=== PATIENT | female | born 1940 | race African-American/Black ===

== ENCOUNTER 2021-12-03 18:40 | Inpatient (IN) | payer OTHER ==
[~2021-12-03] VITALS: Ht 172.7 cm; Wt 77.1 kg
[2021-12-03] MEDS ORDERED: CEFTRIAXONE 1 G PREMIX 50 ML IV ONE (19:15)
[2021-12-03] MEDS ORDERED: SODIUM CHLORIDE 0.9% 1000ML BAG (SEPSIS BOLUS) IV ONE (19:15)
[2021-12-03] MEDS ORDERED: VANCOMYCIN 1G PREMIX 200 ML IV SCH (19:15)
[2021-12-03 19:25] LABS: BASOPHILS % 0.3 % (0.0-2.0); EOSINOPHILS % 0.1 % (0.0-5.0); HEMATOCRIT. 39.2 % (36.0-48.0); LYMPHOCYTES % 35.8 % (20.0-50.0); MEAN CORPUSCULAR HEMOGLOBIN 31.7 pg (28.0-32.0); MEAN CORPUSCULAR VOLUME 95.4 fL (81.0-99.0); MEAN PLATELET VOLUME 10.3 fl (7.4-10.4); MONOCYTES % 3.9 % (2.0-8.0); NEUTROPHILS % 59.9 % (40.0-76.0); PLATELET 162 x1000/uL (130-400); RED BLOOD CELL COUNT 4.11 mill/uL (4.2-5.4); RED CELL DISTRIBUTION WIDTH 14.9 % (11.6-14.6)
[2021-12-03 19:33] LABS: CHLORIDE 106 mEq/L (98-107)
[2021-12-03] MEDS ORDERED: NOREPINEPHRINE 8MG/250ML PMX 250 ML IV ONE (19:45)
[2021-12-03] MEDS ORDERED: KETOROLAC 15MG/ML VIAL IV ONE (21:00)
[2021-12-03 23:24] LABS: CLARITY URINE CLEAR (CLEAR); COLOR URINE YELLOW (YELLOW); KETONES URINE TRACE (NEGATIVE); LEUKOCYTE ESTERASE URINE NEGATIVE (NEGATIVE); NITRITE URINE NEGATIVE (NEGATIVE); OCCULT BLOOD URINE 1+ (NEGATIVE); PROTEIN URINE 1+ (NEGATIVE); SPECIFIC GRAVITY URINE 1.015 (1.005-1.030)
[2021-12-04] MEDS ORDERED: NOREPINEPHRINE 8MG/250ML PMX 250 ML IV ONE (02:03)
[2021-12-04] MEDS ORDERED: ONDANSETRON HCL 4MG/2ML INJ IV PRN (11:45)
[2021-12-04] MEDS ORDERED: ACETAMINOPHEN 325MG TABLET PO PRN (11:45)
[2021-12-04] MEDS ORDERED: DEXTROSE 50% WATER 50ML SYRINGE IV PRN (11:45)
[2021-12-04] MEDS: BLOOD SUGAR DIAGNOSTIC STRIP TEST SCH ×3 (12:50→20:43)
[2021-12-04] MEDS: ENOXAPARIN 40MG/0.4ML SYR SUBCUT SCH (14:36)
[2021-12-04] MEDS ORDERED: HALOPERIDOL LACTATE 5MG/ML VIAL IM NR (15:47)
[2021-12-04 15:53] LABS: CREATINE KINASE 60 IU/L (26-192); CREATINE KINASE MB FRACTION < 1.0 ng/mL (0.5-3.6)
[2021-12-04] MEDS: QUETIAPINE FUMARATE 50MG TABLET PO SCH (16:35)
[2021-12-04] MEDS: INSULIN LISPRO 100 UNITS/ML SUBCUT SCH ×2 (16:53→20:43)
[2021-12-04] MEDS ORDERED: CEFTRIAXONE 2 G PREMIX 50 ML IV SCH (19:00)
[2021-12-04 19:10] VITALS: BP 129/68
[2021-12-04 20:00] VITALS: BP 129/68
[2021-12-04] MEDS: VANCOMYCIN 1GM PMX (XELLIA) 200 ML IV SCH (20:55)
[2021-12-04] MEDS: CEFTRIAXONE 2 G in DEXTROSE 5% WATER 50 ML IV SCH (20:56)
[2021-12-04] MEDS: ASPIRIN 300MG SUPP PR SCH (21:56)
[2021-12-04] MEDS ORDERED: PANT40TA51 PO (22:37)
[2021-12-04] MEDS ORDERED: QUET200T30 PO (22:37)
[2021-12-04] MEDS ORDERED: AMLO10TA80 PO (22:37)
[2021-12-04] MEDS ORDERED: TOPUD PO (22:37)
[2021-12-04] MEDS ORDERED: ASPI-1497 PO (22:37)
[2021-12-04] MEDS ORDERED: ATOR10TA69 PO (22:37)
[2021-12-04] MEDS ORDERED: CALC-988 PO (22:37)
[2021-12-04] MEDS ORDERED: MEMA10TA55 PO (22:37)
[2021-12-04] MEDS ORDERED: MELA5TAB19 PO (22:37)
[2021-12-04] MEDS ORDERED: LOPE2CAP PO (22:37)
[2021-12-04] MEDS ORDERED: MELA10TA PO (22:37)
[2021-12-04 23:30] LABS: CREATINE KINASE 89 IU/L (26-192); CREATINE KINASE MB FRACTION < 1.0 ng/mL (0.5-3.6)
[2021-12-04 23:41] VITALS: BP 110/50
[2021-12-05 04:00] VITALS: BP 131/62
[2021-12-05] MEDS: INSULIN LISPRO 100 UNITS/ML SUBCUT SCH ×4 (06:10→20:57)
[2021-12-05] MEDS: BLOOD SUGAR DIAGNOSTIC STRIP TEST SCH ×4 (06:10→20:57)
[2021-12-05 07:40] LABS: BASOPHILS % 0.3 % (0.0-2.0); EOSINOPHILS % 1.8 % (0.0-5.0); HEMATOCRIT. 31.3 % (36.0-48.0); HEMOGLOBIN. 10.6 g/dL (12.0-16.0); LYMPHOCYTES % 19.6 % (20.0-50.0); MEAN CORPUSCULAR VOLUME 94.1 fL (81.0-99.0); MEAN PLATELET VOLUME 10.2 fl (7.4-10.4); MONOCYTES % 10.9 % (2.0-8.0); NEUTROPHILS % 67.4 % (40.0-76.0); PLATELET 137 x1000/uL (130-400); RED BLOOD CELL COUNT 3.33 mill/uL (4.2-5.4); RED CELL DISTRIBUTION WIDTH 14.2 % (11.6-14.6)
[2021-12-05 08:00] VITALS: BP 110/67
[2021-12-05] MEDS: QUETIAPINE FUMARATE 50MG TABLET PO SCH (08:22)
[2021-12-05] MEDS: ENOXAPARIN 40MG/0.4ML SYR SUBCUT SCH (08:22)
[2021-12-05 09:09] LABS: CHLORIDE 110 mEq/L (98-107)
[2021-12-05 12:00] VITALS: BP 118/61
[2021-12-05] MEDS: VANCOMYCIN 1GM PMX (XELLIA) 200 ML IV SCH (12:59)
[2021-12-05] MEDS: ASPIRIN 300MG SUPP PR SCH (13:08)
[2021-12-05] MEDS ORDERED: SODIUM CHLORIDE 0.9% 1,000 ML IV SCH (14:30)
[2021-12-05] MEDS ORDERED: HALOPERIDOL LACTATE 5MG/ML VIAL IM PRN (14:30)
[2021-12-05 16:00] VITALS: BP 102/74
[2021-12-05] MEDS: CEFTRIAXONE 2 G in DEXTROSE 5% WATER 50 ML IV SCH (19:37)
[2021-12-05 20:19] VITALS: BP 131/62
== END 2021-12-05 21:42 | disposition short-term general hospital (02) | DRG 871 ==
LOC: ER 18:40 → MICUSO 23:30 → ENRESERV 12-04 11:35 → EDBEDREQSVC 12-04 12:17 → ENRESERV 12-04 15:04 → EDBEDREQ 12-04 16:43 → 8WST 12-04 20:42
PROVIDERS: ADMIT Internal Medicine; ATTEND Internal Medicine
DX: A41.9 Sepsis, unspecified organism (principal); G93.41 Metabolic encephalopathy; R65.21 Severe sepsis with septic shock; E87.2 Acidosis; B99.8 Other infectious disease; Z20.822 Contact with and (suspected) exposure to COVID-19; E78.5 Hyperlipidemia, unspecified; I10 Essential (primary) hypertension; I95.9 Hypotension, unspecified; E78.00 Pure hypercholesterolemia, unspecified; F03.90 Unspecified dementia, unspecified severity, without behavioral disturbance, psychotic disturbance, mood disturbance, and anxiety; E11.65 Type 2 diabetes mellitus with hyperglycemia; F41.9 Anxiety disorder, unspecified
CPT/HCPCS: 36415; 71045; 80048; 80053; 81003; 82550; 82553; 82962; 83036; 83605; 83880; 84145; 84484; 85025; 87426; 93005; 99291; J0696; J1630; J1650; J1815; J3370; J3490; J7030; J7060; A4315

== ENCOUNTER 2022-10-08 22:27 | Emergency (ER) | payer OTHER ==
[~2022-10-08] VITALS: Ht 170.2 cm; Wt 73.0 kg
[~2022-10-08 22:27] MED LIST: AMLO10TA80 PO; ASPI-1497 PO; ATOR10TA69 PO; CALC-988 PO; LOPE2CAP PO; MELA5TAB19 PO; MELATONIN10 MG PO; PANT40TA51 PO; QUET200T30 PO; TOPUD PO
[2022-10-08 22:36] VITALS: O2SAT 96
[2022-10-08] MEDS ORDERED: CEFTRIAXONE 1GM PREMIX 50 ML IV ONE (23:00)
[2022-10-08] MEDS ORDERED: SODIUM CHLORIDE 0.9% 1000ML BAG (SEPSIS BOLUS) IV ONE (23:00)
[2022-10-08 23:30] LABS: HEMATOCRIT. 36.9 % (36.0-48.0); HEMOGLOBIN. 12.3 g/dL (12.0-16.0); MEAN CORPUSCULAR VOLUME 96.1 fL (81.0-99.0); PLATELET 162 x1000/uL (130-400); RED BLOOD CELL COUNT 3.84 mill/uL (4.2-5.4)
[2022-10-08 23:38] LABS: CLARITY URINE CLEAR (CLEAR); COLOR URINE YELLOW (YELLOW); KETONES URINE TRACE (NEGATIVE); LEUKOCYTE ESTERASE URINE NEGATIVE (NEGATIVE); NITRITE URINE NEGATIVE (NEGATIVE); OCCULT BLOOD URINE NEGATIVE (NEGATIVE); PH URINE 5.5 (4.5-8.0); PROTEIN URINE NEGATIVE (NEGATIVE); SPECIFIC GRAVITY URINE 1.028 (1.005-1.030)
[2022-10-08 23:41] LABS: PROTHROMBIN TIME 10.9 sec (9.6-11.0)
[2022-10-08 23:44] LABS: CHLORIDE 115 mEq/L (98-107)
[2022-10-09] MEDS ORDERED: LORAZEPAM 2MG/ML CPJ IV ONE (00:30)
[2022-10-09 02:01] LABS: PLATELET ESTIMATE NORMAL
[2022-10-09 06:00] VITALS: TEMP 95.7
[2022-10-09 07:31] VITALS: BP 135/58; PULSE 84; RESP 12
== END 2022-10-09 07:53 | disposition short-term general hospital (02) ==
LOC: ER 22:27
DX: N39.0 Urinary tract infection, site not specified (principal); R45.1 Restlessness and agitation; F03.90 Unspecified dementia, unspecified severity, without behavioral disturbance, psychotic disturbance, mood disturbance, and anxiety; F41.9 Anxiety disorder, unspecified; F32.9 Major depressive disorder, single episode, unspecified; E11.9 Type 2 diabetes mellitus without complications; E78.00 Pure hypercholesterolemia, unspecified; I10 Essential (primary) hypertension; Z79.899 Other long term (current) drug therapy
CPT/HCPCS: 99291; 96365; 80053; 81003; 83880; 83605; 85025; 85610; 87040; 87086; 84484; 36415; 84145; 71045; 93005; 96375; J0696; J7030; J2060

== ENCOUNTER 2023-05-20 09:55 | Emergency (ER) | payer OTHER ==
[~2023-05-20] VITALS: Ht 167.6 cm; Wt 70.0 kg
[2023-05-20 10:08] VITALS: TEMP 98.8; O2SAT 100
[2023-05-20] MEDS: SODIUM CHLORIDE 0.9% 1,000 ML IV ONE (11:00)
[2023-05-20] MEDS: KETOROLAC 30MG/ML VIAL IV STA (11:00)
[2023-05-20] MEDS: ONDANSETRON HCL 4MG/2ML INJ IV STA (11:00)
[2023-05-20 11:02] VITALS: BP 131/62; PULSE 82; RESP 15
[2023-05-20 13:01] LABS: BASOPHILS % 0.2 % (0.0-2.0); EOSINOPHILS % 0.2 % (0.0-5.0); HEMOGLOBIN. 14.5 g/dL (12.0-16.0); LYMPHOCYTES % 8.1 % (20.0-50.0); MEAN CORPUSCULAR HEMOGLOBIN 32.2 pg (28.0-32.0); MEAN CORPUSCULAR HGB CONC 32.9 g/dL (31.0-37.0); MEAN CORPUSCULAR VOLUME 97.9 fL (81.0-99.0); MEAN PLATELET VOLUME 10.8 fl (7.4-10.4); MONOCYTES % 5.6 % (2.0-8.0); NEUTROPHILS % 85.9 % (40.0-76.0); PLATELET 168 x1000/uL (130-400); RED BLOOD CELL COUNT 4.49 mill/uL (4.2-5.4); RED CELL DISTRIBUTION WIDTH 13.6 % (11.6-14.6); WHITE BLOOD COUNT 14.9 x1000/uL (4.5-11.0)
[2023-05-20 13:13] LABS: INR 0.9; PROTHROMBIN TIME 10.3 sec (9.6-11.0)
[2023-05-20 13:27] LABS: ALANINE AMINOTRANSFERASE 20 IU/L (10-49); ALBUMIN 4.4 g/dL (3.2-4.8); ASPARTATE AMINOTRANSFERASE 24 IU/L (<34); BILIRUBIN TOTAL 0.3 mg/dL (0.1-1.0); CALCIUM 9.1 mg/dL (8.7-10.4); CARBON DIOXIDE 26 mEq/L (21-32); CHLORIDE 106 mEq/L (98-107); CREATININE 0.7 mg/dL (0.6-1.0); GLUCOSE 121 mg/dL (70-105); SODIUM 141 mEq/L (136-145); UREA NITROGEN BLOOD 11 mg/dL (9-23)
[2023-05-20 19:26] LABS: CLARITY URINE CLEAR (CLEAR); COLOR URINE YELLOW (YELLOW); GLUCOSE URINE TRACE (NEGATIVE); KETONES URINE TRACE (NEGATIVE); LEUKOCYTE ESTERASE URINE NEGATIVE (NEGATIVE); NITRITE URINE NEGATIVE (NEGATIVE); OCCULT BLOOD URINE NEGATIVE (NEGATIVE); PROTEIN URINE TRACE (NEGATIVE); SPECIFIC GRAVITY URINE 1.019 (1.005-1.030)
[2023-05-20 19:52] LABS: RBC URINE 0-2 /hpf (0-2); SQUAMOUS EPITHELIAL CELL URINE 1+ /lpf (RARE/1+); WBC URINE 0-2 /hpf (0-2); YEAST URINE NONE SEEN
[2023-05-20 19:53] LABS: BACTERIA URINE 1+
== END 2023-05-20 21:39 | disposition home or self-care (01) ==
LOC: ER 10:14
DX: R11.2 Nausea with vomiting, unspecified (principal); R10.9 Unspecified abdominal pain; F41.9 Anxiety disorder, unspecified; F03.90 Unspecified dementia, unspecified severity, without behavioral disturbance, psychotic disturbance, mood disturbance, and anxiety; F32.9 Major depressive disorder, single episode, unspecified; E11.9 Type 2 diabetes mellitus without complications; E78.00 Pure hypercholesterolemia, unspecified; I10 Essential (primary) hypertension; Z79.899 Other long term (current) drug therapy
CPT/HCPCS: 99285; 74176; 96374; 96361; 96375; 80053; 81003; 83690; 85025; 85610; 36415; J1885; J2405; J7030

== ENCOUNTER 2023-07-31 10:27 | Emergency (ER) | payer OTHER ==
[~2023-07-31] VITALS: Ht 167.6 cm; Wt 64.0 kg
[2023-07-31 10:29] VITALS: O2SAT 100
[2023-07-31 11:39] LABS: CHLORIDE 108 mEq/L (98-107); POTASSIUM 4.1 mEq/L (3.5-5.1); SODIUM 142 mEq/L (136-145)
[2023-07-31 11:40] LABS: CALCIUM 9.3 mg/dL (8.7-10.4); CARBON DIOXIDE 28 mEq/L (21-32)
[2023-07-31 11:45] LABS: CREATININE 0.8 mg/dL (0.6-1.0); GLUCOSE 86 mg/dL (70-105); UREA NITROGEN BLOOD 11 mg/dL (9-23)
[2023-07-31 11:48] LABS: TROPONIN I HIGH SENSITIVITY < 4 ng/L (3.0-34)
[2023-07-31 11:51] LABS: BASOPHILS % 0.3 % (0.0-2.0); EOSINOPHILS % 0.5 % (0.0-5.0); HEMATOCRIT. 31.6 % (36.0-48.0); HEMOGLOBIN. 10.2 g/dL (12.0-16.0); LYMPHOCYTES % 18.7 % (20.0-50.0); MEAN CORPUSCULAR HGB CONC 32.4 g/dL (31.0-37.0); MEAN CORPUSCULAR VOLUME 89.6 fL (81.0-99.0); MEAN PLATELET VOLUME 9.6 fl (7.4-10.4); MONOCYTES % 7.8 % (2.0-8.0); NEUTROPHILS % 72.7 % (40.0-76.0); PLATELET 216 x1000/uL (130-400); RED BLOOD CELL COUNT 3.53 mill/uL (4.2-5.4); RED CELL DISTRIBUTION WIDTH 15.2 % (11.6-14.6); WHITE BLOOD COUNT 7.2 x1000/uL (4.5-11.0)
[2023-07-31 14:38] VITALS: BP 136/72; PULSE 66; RESP 13; TEMP 98.2
== END 2023-07-31 15:38 | disposition short-term general hospital (02) ==
LOC: ER 10:27 → EDBEDREQTM 12:53 → EDBEDREQ 12:53 → ER 15:38
DX: R55 Syncope and collapse (principal); F03.90 Unspecified dementia, unspecified severity, without behavioral disturbance, psychotic disturbance, mood disturbance, and anxiety; F32.9 Major depressive disorder, single episode, unspecified; K21.9 Gastro-esophageal reflux disease without esophagitis; I10 Essential (primary) hypertension; Z79.899 Other long term (current) drug therapy
CPT/HCPCS: 36415; 71045; 80048; 83880; 84484; 85025; 93005; 99285

== ENCOUNTER 2024-08-02 15:55 | Emergency (ER) | payer OTHER, MEDICAID ==
[~2024-08-02] VITALS: Ht 175.3 cm; Wt 60.0 kg
[~2024-08-02 15:55] MED LIST changes: +ESCI-7 PO; +MEMA10TA20 PO; +MULT-1146 PO; +OMEP20CA14 PO
[2024-08-02 15:56] VITALS: O2SAT 94
[2024-08-02 17:58] LABS: BASOPHILS % 0.1 % (0.0-2.0); EOSINOPHILS % 0.3 % (0.0-5.0); HEMATOCRIT. 40.2 % (36.0-48.0); HEMOGLOBIN. 13.1 g/dL (12.0-16.0); LYMPHOCYTES % 11.7 % (20.0-50.0); MEAN CORPUSCULAR HEMOGLOBIN 31.2 pg (28.0-32.0); MEAN CORPUSCULAR HGB CONC 32.7 g/dL (31.0-37.0); MEAN CORPUSCULAR VOLUME 95.3 fL (81.0-99.0); MEAN PLATELET VOLUME 9.6 fl (7.4-10.4); MONOCYTES % 5.9 % (2.0-8.0); PLATELET 188 x1000/uL (130-400); RED BLOOD CELL COUNT 4.22 mill/uL (4.2-5.4); RED CELL DISTRIBUTION WIDTH 14.7 % (11.6-14.6); WHITE BLOOD COUNT 12.4 x1000/uL (4.5-11.0)
[2024-08-02 18:08] LABS: CHLORIDE 105 mEq/L (98-107); POTASSIUM 4.4 mEq/L (3.5-5.1); PROTHROMBIN TIME 11.1 sec (9.6-11.0); SODIUM 141 mEq/L (136-145)
[2024-08-02 18:09] LABS: CALCIUM 9.2 mg/dL (8.7-10.4); CARBON DIOXIDE 28 mEq/L (21-32)
[2024-08-02 18:14] LABS: GLUCOSE 105 mg/dL (70-105); UREA NITROGEN BLOOD 14 mg/dL (9-23)
[2024-08-02 18:23] LABS: TROPONIN I HIGH SENSITIVITY < 4 ng/L (3.0-34)
[2024-08-02 20:01] VITALS: BP 113/59; PULSE 89; RESP 19; TEMP 36.7; O2SAT 100
== END 2024-08-02 21:09 | disposition home or self-care (01) ==
LOC: ER 15:55 → EDBEDREQ 18:53 → ENRESERV 19:08 → ER 21:09
DX: R55 Syncope and collapse (principal); E78.00 Pure hypercholesterolemia, unspecified; F03.93 Unspecified dementia, unspecified severity, with mood disturbance; I10 Essential (primary) hypertension; Z79.899 Other long term (current) drug therapy
CPT/HCPCS: 36415; 71045; 80048; 83880; 84484; 85025; 93005; 99285

== ENCOUNTER 2024-10-30 19:42 | Emergency (ER) | payer MEDICARE, MEDICAID ==
[~2024-10-30] VITALS: Ht 162.6 cm; Wt 70.4 kg
[2024-10-30] MEDS: SODIUM CHLORIDE 0.9% (SEPSIS BOLUS) IV ONE (20:55)
[2024-10-30] MEDS: PIPERACILLIN/TAZO 3.375G/50ML 50 ML IV ONE (21:02)
[2024-10-30 21:06] LABS: BASOPHILS % 0.4 % (0.0-2.0); EOSINOPHILS % 0.9 % (0.0-5.0); HEMATOCRIT. 38.8 % (36.0-48.0); HEMOGLOBIN. 12.6 g/dL (12.0-16.0); LYMPHOCYTES % 26.8 % (20.0-50.0); MEAN PLATELET VOLUME 10.2 fl (7.4-10.4); MONOCYTES % 6.5 % (2.0-8.0); NEUTROPHILS % 65.4 % (40.0-76.0); PLATELET 108 x1000/uL (130-400); RED BLOOD CELL COUNT 3.78 mill/uL (4.2-5.4); RED CELL DISTRIBUTION WIDTH 14.1 % (11.6-14.6)
[2024-10-30 21:15] LABS: INR 1.1
[2024-10-30 21:19] LABS: TROPONIN I HIGH SENSITIVITY < 4 ng/L (3.0-34)
[2024-10-30 21:20] LABS: CREATININE 0.9 mg/dL (0.6-1.0); UREA NITROGEN BLOOD 12 mg/dL (9-23)
[2024-10-30 21:21] LABS: ETHANOL BLOOD < 10 mg/dL (<10)
[2024-10-30 21:22] LABS: ASPARTATE AMINOTRANSFERASE 33 IU/L (<34); BILIRUBIN DIRECT < 0.1 mg/dL (<=3.0)
[2024-10-30 21:23] LABS: BILIRUBIN TOTAL 0.3 mg/dL (0.1-1.0); PROTEIN TOTAL 5.3 g/dL (6.0-8.3)
[2024-10-30] MEDS: VANCOMYCIN 1G PREMIX 200 ML IV ONE (21:28)
[2024-10-30 21:48] LABS: CLARITY URINE CLOUDY (CLEAR); COLOR URINE YELLOW (YELLOW); GLUCOSE URINE NEGATIVE (NEGATIVE); KETONES URINE NEGATIVE (NEGATIVE); LEUKOCYTE ESTERASE URINE 3+ (NEGATIVE); NITRITE URINE NEGATIVE (NEGATIVE); OCCULT BLOOD URINE TRACE (NEGATIVE); PH URINE 7.5 (4.5-8.0); PROTEIN URINE NEGATIVE (NEGATIVE); SPECIFIC GRAVITY URINE 1.030 (1.005-1.030); UROBILINOGEN URINE 0.2 E.U./dL (0.2-1.0)
[2024-10-30 21:52] LABS: *AMPHETAMINES SCREEN URINE NEGATIVE (NEGATIVE); *BARBITURATES SCREEN URINE NEGATIVE (NEGATIVE); *BENZODIAZEPINES SCREEN URINE NEGATIVE (NEGATIVE); *COCAINE SCREEN URINE NEGATIVE (NEGATIVE); CANNABINOID URINE SCREEN NEGATIVE (NEGATIVE); ECSTASY MDMA SCREEN URINE NEGATIVE (NEGATIVE); METHADONE URINE SCREEN NEGATIVE (NEGATIVE); OPIATES URINE SCREEN NEGATIVE (NEGATIVE); PHENCYCLIDINE URINE SCREEN NEGATIVE (NEGATIVE)
[2024-10-30 21:59] LABS: BACTERIA URINE 1+; SQUAMOUS EPITHELIAL CELL URINE 1+ /lpf (RARE/1+)
[2024-10-30] MEDS: HALOPERIDOL LACTATE 5MG/ML VIAL IM ONE (22:22)
[2024-10-30] MEDS ORDERED: HALOPERIDOL LACTATE 5MG/ML VIAL IM ONE (22:45)
[2024-10-30] MEDS ORDERED: DIPHENHYDRAMINE 50MG/ML VIAL IV ONE (22:45)
[2024-10-30 23:24] VITALS: TEMP 36.8
[2024-10-30] MEDS: IOHEXOL-350 100 ML BOTTLE ONE (23:26)
[2024-10-31 00:40] VITALS: TEMP 98.2; O2SAT 100
[2024-10-31] MEDS: DIPHENHYDRAMINE 50MG/ML VIAL IV NR (00:40)
[2024-10-31] MEDS: HALOPERIDOL LACTATE 5MG/ML VIAL IM NR (00:41)
[2024-10-31 01:59] VITALS: BP 175/107; PULSE 87; RESP 19; O2SAT 97
== END 2024-10-31 02:24 | disposition short-term general hospital (02) ==
LOC: ER 19:42 → CMPBEDREQ 10-31 07:41
DX: R41.82 Altered mental status, unspecified (principal); N39.0 Urinary tract infection, site not specified; E78.00 Pure hypercholesterolemia, unspecified; F03.911 Unspecified dementia, unspecified severity, with agitation; I10 Essential (primary) hypertension; I67.82 Cerebral ischemia; Z79.82 Long term (current) use of aspirin; Z79.899 Other long term (current) drug therapy
CPT/HCPCS: 80076; 80305; 80048; 81003; 80320; 82962; 83880; 83605; 83690; 83735; 85025; 85610; 85730; 87040; 84484; 36415; 84145; 71045; 70496; 70498; 70450; 93005; 99291; 96367; 96365; 96366; 96372; 96375; Q9967; J1630 ×2; J2543; J3373; J7030; J1200; G0480